=== PATIENT | male | born 1985 | race Two or more races ===

== ENCOUNTER 2016-10-24 22:39 | Emergency (ER) | payer MEDICAID ==
[~2016-10-24] VITALS: Ht 167.6 cm; Wt 72.6 kg
[2016-10-25] VITALS: BP 120/66
[2016-10-25] MEDS ORDERED: BACITRACIN TOP OINT 1 UD PKG TOP ONE (02:00)
== END 2016-10-25 02:03 | disposition home or self-care (01) ==
LOC: ER 22:48
DX: S61.412A Laceration without foreign body of left hand, initial encounter (principal); F10.10 Alcohol abuse, uncomplicated; W22.8XXA Striking against or struck by other objects, initial encounter; Y93.89 Activity, other specified; Y92.89 Other specified places as the place of occurrence of the external cause; Y99.8 Other external cause status
CPT/HCPCS: 12001; 12041